=== PATIENT | female | born 1965 | race African-American/Black ===

== ENCOUNTER 2019-01-22 06:08 | Day surgery (SDC) | payer BC, OTHER ==
[2019-01-20 13:15] VITALS: BMI 41.1
[2019-01-22] MEDS ORDERED: PROPOFOL 20 ML ONE ×2 (07:18)
[2019-01-22] MEDS ORDERED: MIDAZOLAM HCL 2 MG/2 ML SINGLE DOSE VIAL ONE (07:18)
[2019-01-22] MEDS ORDERED: SUCCINYLCHOLINE CHLORIDE 200 MG/10 ML SYRINGE ONE (07:18)
[2019-01-22] MEDS ORDERED: ceFAZolin SODIUM 1 GM VIAL ONE (07:21)
[2019-01-22] MEDS ORDERED: SODIUM CHLORIDE 0.9% P/F 10 ML VIAL IJ ONE ×2 (07:21→08:39)
[2019-01-22] MEDS ORDERED: KETOROLAC TROMETHAMINE 30 MG/1 ML VIAL ONE (07:21)
[2019-01-22] MEDS ORDERED: DEXAMETHASONE SOD PHOSPHATE 4 MG/1 ML VIAL ONE (07:21)
[2019-01-22] MEDS ORDERED: LIDOCAINE HCL/PF 2% SDV 5ML VIAL ONE (07:21)
[2019-01-22] MEDS ORDERED: LIDOCAINE 1%-EPI 1:100,000 30 ML MDV IJ ONE (07:27)
[2019-01-22] MEDS ORDERED: BUPIVACAINE HCL/PF 0.5% (5 MG/ML) 30 ML VIAL IJ ONE ×2 (07:28→09:16)
--- NOTE | 2019-01-22 08:32 | HP ---
Satellite [facility] - Chief Complaint Chief Complaint: left knee pain History of Present Illness: left knee medial meniscus tear History Source: Patient Limitations to Obtaining History: No Limitations - Past Medical History Allergies/Adverse Reactions: Allergies Allergy/AdvReac Type Severity Reaction Status Date / Time No Known Allergies Allergy Verified 01/22/19 06:40 - Current Medications Current Medications: Home Medications Medication Instructions Recorded Multivitamin [Multiple Vitamins] 1 each PO DAILY 01/20/19 Satellite Physical Exam - Physical Examination Vital Signs: Vital Signs Period Temp Pulse Resp BP Sys/Yan Pulse Ox Last 24 Hr 97.2 F 72 16 138/81 98 General Appearance: Well Nourished ENT: Clear Lung: Clear to auscultation Heart: Regular rate & rhythm Breasts: Soft Abdomen: Soft Extremities: No edema Satellite Impression/Plan - Impression/Plan Impression: left knee pain, medial meniscus tear, OA Operative Procedure: left knee arthroscopy, partial medial meniscectomy Date to be Performed: 01/22/19
[2019-01-22] MEDS ORDERED: ePHEDrine SULFATE 50 MG/1 ML AMPULE ONE (08:36)
[2019-01-22] MEDS ORDERED: ceFAZolin SODIUM 1 GM VIAL IVPB ONE (08:37)
--- NOTE | 2019-01-22 09:18 | OP ---
Operative Note - Note: Operative Date: 01/22/19 Pre-Operative Diagnosis: left knee pain, medial meniscus tear, OA Operation: left knee arthroscopy, partial medial meniscectomy, debridement chondroplasty Post-Operative Diagnosis: Same as Pre-op Surgeon: Bin Lund [employer] Commerce Developer: Silvano Artis Anesthesiologist/CONTENT ADMINISTRATOR: Lazarus Lawrence Anesthesia: General, Local Specimens Removed: shavings Estimated Blood Loss (mls): 0 Drains, Volume Out (mls): 0 Blood Volume Replaced (mls): 0 Fluid Volume Replaced (mls): 1,000 Operative Report Dictated: Yes
[2019-01-22 10:00] VITALS: TEMP 97.5
[2019-01-22] MEDS ORDERED: ONDANSETRON 4 MG/2 ML VIAL IVPUSH PRN (11:17)
[2019-01-22] MEDS ORDERED: oxyCODONE HCL 5 MG TABLET PO PRN (11:17)
[2019-01-22] MEDS ORDERED: oxyCODONE HCL 5 MG TABLET PO ONE (11:20)
[2019-01-22] MEDS ORDERED: LACTATED RINGERS SOLUTION 1,000 ML IV SCH (11:30)
[2019-01-22 13:06] VITALS: BP 105/72; PULSE 74
--- NOTE | 2019-01-22 14:37 | OP ---
DATE OF OPERATION: 01/22/2019 PREOPERATIVE DIAGNOSIS: Left knee pain, medial meniscus tear, and osteoarthritis. POSTOPERATIVE DIAGNOSIS: Left knee pain, medial meniscus tear, and osteoarthritis. PROCEDURE: Left knee arthroscopy, partial medial meniscectomy, and debridement chondroplasty. SURGEON: Bin Lund MD ACCOUNTANT TAX: Vimal Schuster MD ANESTHESIA: ELVIN Peguero. LMA anesthesia, local injection of 20 mL 0.5% Marcaine. DRAINS: None. COMPLICATIONS: None. SPECIMEN: Arthroscopic shavings. BLOOD LOSS: None. BLOOD GIVEN: None. FLUID REPLACEMENT: 1000 mL Plasma-Lyte. INDICATIONS: This patient is a 53-year-old female with a preoperative diagnosis of left knee pain, medial meniscus tear, and osteoarthritis. After understanding the potential risks, complications, alternatives, and benefits to surgery versus nonsurgical treatment, the patient elected to undergo this procedure. DESCRIPTION OF PROCEDURE: The patient was brought to the operating room. Peripheral IV placed. IV sedation given, 2 g of IV Ancef were given. LMA anesthesia was induced. Ample Webril was placed around the left thigh. The tourniquet was applied, the Styrofoam ring applied, and she was placed into the C-clamp ample padded throughout. The left lower extremity was then prepped and draped in a usual sterile fashion, elevated, exsanguinated with Esmarch bandage, tourniquet inflated to 275 mmHg. A superomedial outflow portal was established. A lateral portal was established under direct visualization using a spinal needle. A medial port was established, and diagnostic arthroscopy was performed. 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 The patient had a complex tear of the posterior horn of the medial meniscus. It was debrided with the upbiting forceps with the left biter and curved shaver. Photograph were taken before and after. The patient had a lot of synovitis in the anterior aspect of the knee including an excessive and fibrotic Hoffa fat pad. This is a removed with a shaver. Patient had a large ligamentum mucosum in the anterior aspect of the intercondylar notch. This was removed as well with the shaver. The ACL looked good. In the lateral compartment, the patient had a somewhat discoid lateral meniscus. The edge was frayed, but there was no ryan tear. There was grade 1 chondromalacia changes but no significant osteoarthritis. Next, our attention turned to the patellofemoral joint. The patient had significant chondromalacia changes on the undersurface of the patella. This was debrided with a shaver. After the debridement chondroplasty, the notch was better visualized, and it was seen to have a large area of grade 4 osteoarthritis. There were some loose flaps. This was debrided as well. After this portion of the debridement chondroplasty, the area was copiously irrigated and washed out. All instrumentation, excess saline, and soft tissue debris was removed. The arthroscopy portal was closed with 3-0 nylon sutures, 20 mL of 0.5% Marcaine introduced into the joint. The area was then washed and dried, covered with Xeroform, 4 x 4 gauze, Webril, and 6-inch Efra bandage was applied. The tourniquet was taken down after a total tourniquet time of about 25 minutes. There were no complications during the case. The patient tolerated the procedure quite well and was brought to the ambulatory recovery room in stable condition. VIMAL SCHUSTER M.D. [id number]
--- NOTE | 2019-01-23 16:38 | PATH ---
Surgical Pathology Report Patient Name: BREANNA GOMES [facility]. Rec. #: [id number] /Age/Gender: 1965 (Age: 53) / F Account: [id number] Location: [facility] Taken: 01/22/2019 Received: 01/22/2019 Reported: 01/23/2019 Physicians: Silvano Artis M.D. Specimen(s) Received LEFT KNEE SHAVINGS Clinical History Left knee internal derangement Final Diagnosis LEFT KNEE SHAVINGS: FRAGMENTS OF CARTILAGE AND FIBROSYNOVIAL TISSUE WITH FOCAL FIBROSIS. Electronically Signed Kaye Francis M.D. Gross Description Received in formalin, labeled "left knee shavings" are multiple white irregular soft tissue measuring 4.0 x 4.0 x 2.3 cm aggregate. Respiratory Director portions are submitted one cassette. YUN/01/22/2019 stephen/01/22/2019
== END 2019-01-22 12:40 | disposition home or self-care (01) ==
LOC: JASU-SURG 06:08
PROVIDERS: ATTEND Orthopaedic Surgery
PROC: 0SBD4ZZ Excision of Left Knee Joint, Percutaneous Endoscopic Approach (ICD-10-PCS; principal; 2019-01-22 08:47)
DX: M17.12 Unilateral primary osteoarthritis, left knee (principal); M23.222 Derangement of posterior horn of medial meniscus due to old tear or injury, left knee
CPT/HCPCS: 88304-TC; 94760